=== PATIENT | male | born 1995 | race Caucasian/White ===

== ENCOUNTER 2020-07-21 15:06 | Emergency (ER) | payer OTHER ==
[~2020-07-21] VITALS: Ht 167.6 cm; Wt 70.3 kg
[~2020-07-21 15:06] MED LIST: KENALOG63 GM TP; TRILEPTAL; VICODIN 5-5001 EACH PO
[2020-07-21] MEDS ORDERED: BACTRIM DS TAB1 EAC1 PO (15:25)
[2020-07-21 15:36] VITALS: BP 120/82
== END 2020-07-21 15:37 | disposition home or self-care (01) ==
LOC: M.ERS 15:06
DX: L02.11 Cutaneous abscess of neck (principal); L03.221 Cellulitis of neck

== ENCOUNTER 2020-07-23 09:38 | Emergency (ER) | payer OTHER ==
[~2020-07-23] VITALS: Ht 167.6 cm; Wt 70.3 kg
[~2020-07-23 09:38] MED LIST changes: +BACTRIM DS TAB1 EAC1 PO
[2020-07-23 11:18] VITALS: BP 113/76
== END 2020-07-23 11:19 | disposition home or self-care (01) ==
LOC: M.ERS 09:38
DX: L02.11 Cutaneous abscess of neck (principal)

== ENCOUNTER 2021-01-02 22:51 | Emergency (ER) | payer OTHER ==
[~2021-01-02] VITALS: Ht 172.7 cm; Wt 72.6 kg
[2021-01-02 23:05] VITALS: BP 117/83
[2021-01-03 01:03] LABS: URINE BILIRUBIN NEGATIVE (Negative); URINE BLOOD NEGATIVE (Negative); URINE CLARITY CLEAR; URINE COLOR YELLOW; URINE GLUCOSE-RANDOM NEGATIVE (Negative); URINE KETONES NEGATIVE (Negative); URINE LEUKOCYTES-REFLEX NEGATIVE (Negative); URINE NITRITE-REFLEX NEGATIVE (Negative); URINE PROTEIN NEGATIVE (Negative); URINE SPECIFIC GRAVITY 1.025 (1.005-1.030); URINE UROBILINOGEN 0.2 E.U./dl (0.2-1.0)
[2021-01-03] MEDS ORDERED: NYSTATIN-TRIAMC15 G1 TOP (01:06)
[2021-01-03] MEDS ORDERED: DIFLUCAN150 MG PO (01:06)
[2021-01-03 01:10] LABS: AMP/METHAMP Negative (Negative); BARBITURATES Negative (Negative); BENZODIAZEPINES Negative (Negative); COCAINE Negative (Negative); METHADONE Negative (Negative); OPIATES Negative (Negative); PCP Negative (Negative); THC Negative (Negative)
[2021-01-03] MEDS ORDERED: ACETAMINOPHEN-1 EAC2 PO (01:18)
== END 2021-01-03 01:19 | disposition home or self-care (01) ==
LOC: M.ERS 22:51
PROVIDERS: Personal Emergency Response Attendant
DX: N49.2 Inflammatory disorders of scrotum (principal); Z79.899 Other long term (current) drug therapy

== ENCOUNTER 2021-06-19 01:14 | Emergency (ER) | payer OTHER ==
[~2021-06-19] VITALS: Ht 167.6 cm; Wt 68.0 kg
[~2021-06-19 01:14] MED LIST changes: +ACETAMINOPHEN-1 EAC2 PO; +DIFLUCAN150 MG PO; +NYSTATIN-TRIAMC15 G1 TOP
[2021-06-19 02:47] LABS: ABSOLUTE LYMPHOCYTES 1.1 thou/uL (0.8-5.3); ABSOLUTE MONOCYTES 0.5 thou/uL (0.0-1.2); ABSOLUTE NEUTROPHILS 2.1 thou/uL (1.6-8.1); BASOPHILS 0.3 %; EOSINOPHILS 0.1 %; HEMATOCRIT 40.7 % (42.0-52.0); LYMPHOCYTES 30.3 %; MCH 31.8 pg (26.0-34.0); MCHC 34.4 g/dL (28.0-37.0); MCV 92.5 fL (80.0-100.0); MONOCYTES 12.9 %; MPV 8.9 fl. (7.2-11.1); NUCLEATED RBCS 0 /100WBC; PLATELET COUNT* 141 thou/uL (150-400); POLYS 56.4 %; RDW-CV 12.8 % (10.5-14.5); WBC 3.8 thou/uL (4.0-11.0)
[2021-06-19 02:54] LABS: CALCIUM 8.4 mg/dL (8.5-10.1); CREATININE 1.1 mg/dL (0.6-1.3); POTASSIUM 3.7 mmol/L (3.5-5.1)
[2021-06-19 02:59] LABS: ALBUMIN 3.4 g/dL (3.4-5.0); TOTAL BILIRUBIN 0.5 mg/dL (<0.1-1.0); TOTAL PROTEIN 7.5 g/dL (6.4-8.2)
[2021-06-19] MEDS ORDERED: AUGMENTIN 875-1 EACH PO (04:05)
[2021-06-19] MEDS ORDERED: PROAIR HFA8.5 GM INH (04:05)
[2021-06-19] MEDS ORDERED: ZOFRAN ODT4 MG PO (04:05)
[2021-06-19 05:03] VITALS: BP 113/68
== END 2021-06-19 05:05 | disposition home or self-care (01) ==
LOC: M.ERS 01:14
PROVIDERS: Emergency Medicine
DX: U07.1 COVID-19 (principal); J12.82 Pneumonia due to coronavirus disease 2019

== ENCOUNTER 2021-06-25 16:03 | Emergency (ER) | payer OTHER ==
[~2021-06-25] VITALS: Ht 167.6 cm; Wt 68.0 kg
[~2021-06-25 16:03] MED LIST changes: +AUGMENTIN 875-1 EACH PO; +PROAIR HFA8.5 GM INH; +ZOFRAN ODT4 MG PO
[2021-06-25 21:26] LABS: ABSOLUTE MONOCYTES 0.5 thou/uL (0.0-1.2); ABSOLUTE NEUTROPHILS 4.1 thou/uL (1.6-8.1); BASOPHILS 0.5 %; MONOCYTES 8.3 %; NUCLEATED RBCS 0 /100WBC; RDW-CV 12.9 % (10.5-14.5)
[2021-06-25 21:28] LABS: ABSOLUTE EOSINOPHILS 0.1 thou/uL (0.0-0.7); EOSINOPHILS 1.8 %; HEMOGLOBIN 14.9 gm/dL (14.0-18.0); MCHC 34.8 g/dL (28.0-37.0); MPV 8.7 fl. (7.2-11.1); PLATELET COUNT* 349 thou/uL (150-400); POLYS 71.4 %; RBC 4.67 mil/uL (4.50-6.00); WBC 5.7 thou/uL (4.0-11.0)
[2021-06-25 21:40] LABS: CREATININE 0.8 mg/dL (0.6-1.3); POTASSIUM 3.5 mmol/L (3.5-5.1)
[2021-06-25 21:44] LABS: ALBUMIN 3.4 g/dL (3.4-5.0); TOTAL BILIRUBIN 0.5 mg/dL (<0.1-1.0); TOTAL PROTEIN 8.5 g/dL (6.4-8.2)
[2021-06-25] MEDS ORDERED: ZOFRAN ODT4 MG PO (22:08)
[2021-06-25 22:13] VITALS: BP 121/82
== END 2021-06-25 22:13 | disposition home or self-care (01) ==
LOC: M.ERS 16:03
PROVIDERS: Physician Assistant
DX: U07.1 COVID-19 (principal); R11.2 Nausea with vomiting, unspecified; R19.7 Diarrhea, unspecified; Z98.890 Other specified postprocedural states; Z79.899 Other long term (current) drug therapy; Z79.2 Long term (current) use of antibiotics